=== PATIENT | male | born 1955 | race African-American/Black ===

== ENCOUNTER 2023-03-05 07:21 | Emergency (ER) | payer MEDICARE ==
[~2023-03-05] VITALS: Ht 190.5 cm; Wt 145.1 kg
[2023-03-05 07:36] VITALS: O2SAT 99
[2023-03-05] MEDS ORDERED: AMLO10TA4 PO (08:25)
== END 2023-03-05 08:32 | disposition home or self-care (01) ==
LOC: ER 07:21
DX: I10 Essential (primary) hypertension (principal); Z79.899 Other long term (current) drug therapy
CPT/HCPCS: A4606; A4663

== ENCOUNTER 2023-11-15 05:14 | Emergency (ER) | payer MEDICARE ==
[~2023-11-15] VITALS: Ht 193 cm; Wt 149.7 kg
[~2023-11-15 05:14] MED LIST: AMLO10TA4 PO
[2023-11-15] MEDS ORDERED: diphenhydrAMINE 25 MG CAP PO ONE (06:18)
[2023-11-15] MEDS ORDERED: FAMOTIDINE 20 MG TABLET ONE (06:18)
[2023-11-15] MEDS ORDERED: LORATADINE 10 MG TAB.RAPDIS ONE (06:18)
[2023-11-15] MEDS ORDERED: predniSONE 20 MG TABLET ONE (06:19)
[2023-11-15] MEDS: predniSONE 20 MG TABLET PO ONE (06:22)
[2023-11-15] MEDS: LORATADINE 10 MG TAB.RAPDIS SL ONE (06:22)
[2023-11-15] MEDS: FAMOTIDINE 20 MG TABLET PO ONE (06:22)
[2023-11-15] MEDS: diphenhydrAMINE 25 MG CAP PO ONE (06:22)
[2023-11-15] MEDS ORDERED: LORA10CA PO (06:32)
[2023-11-15] MEDS ORDERED: PRED20TA PO (06:32)
[2023-11-15 06:38] VITALS: BP 166/82; TEMP 98.3; O2SAT 96
== END 2023-11-15 06:39 | disposition home or self-care (01) ==
LOC: ER 05:22
DX: H57.89 Other specified disorders of eye and adnexa (principal); L29.9 Pruritus, unspecified; T38.0X5A Adverse effect of glucocorticoids and synthetic analogues, initial encounter; R03.0 Elevated blood-pressure reading, without diagnosis of hypertension; E11.9 Type 2 diabetes mellitus without complications; Z98.890 Other specified postprocedural states; F17.200 Nicotine dependence, unspecified, uncomplicated; Z79.899 Other long term (current) drug therapy; Z79.51 Long term (current) use of inhaled steroids; Z60.2 Problems related to living alone; Y92.89 Other specified places as the place of occurrence of the external cause
CPT/HCPCS: 99284; 82962; Q0163; J7512; A4606; A4663

== ENCOUNTER 2025-02-21 08:00 | Emergency (ER) | payer MEDICARE, OTHER ==
[~2025-02-21] VITALS: Ht 193 cm; Wt 144.2 kg
[~2025-02-21 08:00] MED LIST changes: +AMLO-915 PO; -AMLO10TA4 PO; +LORA10CA PO; +PRED20TA PO
[2025-02-21 08:13] VITALS: BP 177/82
[2025-02-21] MEDS ORDERED: OXYC-128 PO (09:35)
[2025-02-21 09:55] VITALS: BP 163/81; O2SAT 97
== END 2025-02-21 09:55 | disposition home or self-care (01) ==
LOC: ER 08:00
DX: S40.012A Contusion of left shoulder, initial encounter (principal); S80.02XA Contusion of left knee, initial encounter; I10 Essential (primary) hypertension; E11.9 Type 2 diabetes mellitus without complications; F17.210 Nicotine dependence, cigarettes, uncomplicated; M10.9 Gout, unspecified; Z79.52 Long term (current) use of systemic steroids; Z79.899 Other long term (current) drug therapy; Z87.442 Personal history of urinary calculi; Z60.2 Problems related to living alone; W19.XXXA Unspecified fall, initial encounter; Y93.89 Activity, other specified; Y92.89 Other specified places as the place of occurrence of the external cause; Y99.9 Unspecified external cause status
CPT/HCPCS: 73030; A4606; A4663